=== PATIENT | female | born 1975 | race Caucasian/White ===

== ENCOUNTER 2017-06-14 05:12 | Day surgery (SDC) | payer BC ==
[~2017-06-14] VITALS: Ht 170.2 cm; Wt 76.4 kg
--- NOTE | ~2017-06-14 | O ---
[address] [address] OPERATIVE REPORT Name: AYO CHAO Room #: DEP [facility].#: [id number] Admission: 06/14/17 Attend Phys: Kris Dent MD Discharge: 06/14/17 Date of : 77 Report #: [id number] THIS REPORT FOR: //name// CC: Kim Dent DATE OF SERVICE: 06/14/2017 SERVICE: Orthopedics. FACILITY: [facility] SURGEON: Kris Dent MD HUMIDIFIER ATTENDANT SURGEON: None. PREOPERATIVE DIAGNOSES: 1. Right hip intra-articular impingement. 2. Right hip extra-articular impingement. 3. Right hip labral tear. 4. Right hip pain. POSTOPERATIVE DIAGNOSES: 1. Right hip intra-articular impingement. 2. Right hip extra-articular impingement. 3. Right hip labral tear. 4. Right hip pain. PROCEDURES: 1. Right hip arthroscopic Cam osteoplasty. 2. Right hip arthroscopic labral repair. 3. Right hip arthroscopic subspine acetabuloplasty for extra-articular impingement. ANESTHESIA TYPE: General with regional. COMPLICATIONS: None. DRAINS: None. SPECIMENS: None. FINDINGS: 1. Combined type impingement with extraarticular component treated with resection as well as intra-articular component on the femoral side treated with resection under fluoroscopic and arthroscopic visualization. [address] [address] OPERATIVE REPORT Name: AYO CHAO Room #: DEP [facility]#: [id number] Admission: 06/14/17 Attend Phys: Kris Dent MD Discharge: 06/14/17 Date of : 77 Report #: [id number] 2. Labral repair performed with Ewing suture anchor times 4. 3. Capsular repair performed with #2 Vicryl times 3. HISTORY AND INDICATIONS: The patient is a 41-year-old female who has been having progressive persistent right hip pain for several years now. She has tried extensive amount of nonoperative measures including rest, activity modification, physical therapy, exercise routine alterations, work modifications, oral medicines and injections. Despite all of these, she continued to have pain. She had imaging that was consistent with femoroacetabular impingement with an alpha angle of approximately 65 degrees as well as a large labral tear on the MRI. The x-rays also demonstrated a crossover sign with a prominent anterior inferior iliac spine consistent with extra-articular subspine impingement. Risks, benefits, alternatives and indications for surgery were discussed with her in detail. The risks include, but not limited to pain, bleeding, infection, injury to nerves or blood vessels, persistent pain despite surgical intervention, failure of any repairs, reconstruction, progression of any preexisting chondral injury, stiffness, need for further surgery as well as complications related to anesthesia such as stroke, heart attack, pulmonary complications, thromboembolic disease, and . She had no evidence of any arthritis, so her Tonnis grade was 0, therefore plans were made for right hip arthroscopic management of her femoroacetabular impingement and labral pathology. PROCEDURE IN DETAIL: After right lower extremity was correctly identified in the preoperative holding area as the operative extremity, the patient was taken to the operating room and placed supine on operating table after a single shot regional nerve block had been performed by anesthesia. She was padded appropriately after general endotracheal was induced without complication. Prophylactic antibiotics of 2 grams Ancef were administered at appropriate time. The right hip femoral head and neck junction was mapped up under fluoroscopy to assess the extent of the Cam lesion and then the right lower extremity was prepped and draped in standard sterile fashion. Time-out procedure was performed. Standard anterolateral portal followed by mid anterior working portal were established in the standard fashion using arthroscopic and fluoroscopic visualization and transverse capsulotomy was performed. There was a large detached anterior superior labral tear with some fraying at the chondral labral junction and limited grade 3 chondromalacia that was not full thickness. This extended for an area of approximately 2 cm in length, but only about 4-5 mm in depth. The capsule was reflected off the dorsal side of the labrum to allow access to the subspine pincer extra-articular impingement lesion and then the bur was used to resect this using fluoroscopic assistance and then attention was turned towards the labral repair. [address] [address] OPERATIVE REPORT Name: AYO CHAO Room #: DE[place] [facility]#: [id number] Admission: 06/14/17 Attend Phys: Kris Dent MD Discharge: 06/14/17 Date of : 77 Report #: [id number] The bur was used to freshen the edge of the acetabular rim. No rim resection was performed because this was not an over coverage issue at the acetabular articular margin and was rather an extraarticular subspine impingement issue on the acetabular side. The labral repair was then performed with 2 [employer] suture anchors using a mattress suture technique. There was still some increased mobility to the labrum after these two anchors and so at this point, I switched to a knotless suture anchor device in order to provide a more secure reduction as the labral base refixation had already been completed and the goal is to preserve the labrum as long as possible. Two additional anchors using a luggage tag suture technique with labral tape were then added and the labrum at this point was quite stable. The shaver was used to complete a chondroplasty at the chondral labral junction and then the traction was let down. The total traction time was approximately 58 minutes. The hip was then flexed up to assess the Cam lesion and there was chondromalacia of the femoral head and neck junction from the impingement and then using the bur, the Cam osteoplasty was performed in a standard fashion. Instruments were removed from the hip. The femoral head and neck junction was evaluated and was found to be adequately resected on the x-ray in multiple planes and then the scope was placed back into the hip. A dynamic impingement exam was performed again confirming adequate resection and then the debris was lavaged out of the hip and the capsule was closed with a #2 Vicryl times 3. Arthroscopic effusion was drained, the instruments were removed from the hip and the portal sites were closed with a deep followed by superficial 3-0 Monocryl suture followed by sterile dressing. The patient was awaken from anesthesia and taken to recovery room in stable condition. There were no complications and all counts were recorded as correct. <ELECTRONICALLY SIGNED> By: Kris Dent MD 06/15/17 0712 [id number] Kris Dent MD /nt
[~2017-06-14 05:12] MED LIST: FLONASE 0.05%50 MCG NASAL; NORTRIPTYLINE H10 M2 PO; PANTOPRAZOLE SO40 M1 PO; PROTONIX 20 MG20 M1 PO; VENTOLIN HFA 1818 GM INH; VERAPAMIL HCL120 M4 PO; VITAMIN D1000 UNI1 PO; VITAMIN D35000 UNIT PO
[2017-06-14 07:34] VITALS: BP 115/71
[2017-06-14 11:11] VITALS: BP 115/71
== END 2017-06-14 13:30 | disposition home or self-care (01) ==
LOC: OR 05:12 → TBA 05:14 → OR 05:31
DX: S73.101A Unspecified sprain of right hip, initial encounter (principal); M25.851 Other specified joint disorders, right hip; X58.XXXA Exposure to other specified factors, initial encounter; Y93.9 Activity, unspecified; Y92.89 Other specified places as the place of occurrence of the external cause; Y99.9 Unspecified external cause status; M94.251 Chondromalacia, right hip; I10 Essential (primary) hypertension; G43.909 Migraine, unspecified, not intractable, without status migrainosus; K21.9 Gastro-esophageal reflux disease without esophagitis; Z98.890 Other specified postprocedural states
CPT/HCPCS: 50010; 50101; 50386; 51538; 52298; 52304; 55430; 56524; 56527; 57092; 62110; 62900; 70005

== ENCOUNTER 2018-01-23 05:32 | Day surgery (SDC) | payer BC ==
[~2018-01-23] VITALS: Ht 170.2 cm; Wt 73.5 kg
--- NOTE | ~2018-01-23 | O ---
[address] [address] OPERATIVE REPORT Name: AYO CHAO Room #: DEP [facility].#: [id number] Admission: 01/23/18 Attend Phys: Kris Dent MD Discharge: 01/23/18 Date of : 77 Report #: [id number] THIS REPORT FOR: //name// CC: SHARI Dent Physician staff DATE OF SERVICE: 01/23/2018 SERVICE: Orthopedics. FACILITY: [facility]. SURGEON: Kris Dent MD SUPPORT SPECIALIST: None. PREOPERATIVE DIAGNOSES: 1. Left hip pain. 2. Left hip combined type femoroacetabular impingement. 3. Left hip labral tear. 4. Left hip mild chondromalacia. POSTOPERATIVE DIAGNOSES: 1. Left hip pain. 2. Left hip combined type femoroacetabular impingement. 3. Left hip labral tear. 4. Left hip mild chondromalacia. PROCEDURE: 1. Left hip arthroscopic labral repair. 2. Left hip arthroscopic Cam osteochondroplasty. 3. Left hip arthroscopic extraarticular subspine acetabuloplasty with limited chondroplasty. COMPLICATIONS: None. DRAINS: None. SPECIMENS: None. ANESTHESIA: General with regional. FINDINGS: 1. Intrasubstance labral tear with acetabular rim detachment repaired with Clotilde CinchLock suture anchor x 3. [address] [address] OPERATIVE REPORT Name: AYO CHAO Room #: DEP [facility]#: [id number] Admission: 01/23/18 Attend Phys: Kris Dent MD Discharge: 01/23/18 Date of : 77 Report #: [id number] 2. Limited acetabular rim chondromalacia at the chondral labral junction, partial thickness. 3. Intact tissues otherwise. 4. Intense synovitis throughout the hip. HISTORY AND INDICATIONS: The patient is a 42-year-old female with a history of bilateral hip pain and impingement syndrome with associated labral tears who had been treated conservatively for several years and had failed these measures. She had preoperative imaging, which was consistent with these findings with an alpha angle of 58 degrees, labral tear on MRI, a crossover sign on her x-rays and then a Tonnis grade of 0. She had surgery on the right hip as well and this did well with treatment of her GUSTABO and labral tear, and she elected to have a similar procedure on the right. Risks, benefits, alternatives and indications for surgery were again reviewed with her. Risks include but not limited to pain, bleeding, infection, injuring nerves or blood vessels, persistent pain despite surgical intervention, failure of any repairs or reconstruction, progression of any preexisting chondral injury, stiffness, need for further surgery as well as complications related to anesthesia such as stroke, heart attack, pulmonary complications, thromboembolic disease and . Despite these risks, she wished to proceed. PROCEDURE IN DETAIL: After the left lower extremity was correctly identified as the operative extremity, the patient underwent placement of a single shot regional nerve block. She was then taken to the operating room and placed supine on operating table. General endotracheal anesthesia was induced without complication. She was padded appropriately. Prophylactic antibiotics were administered at appropriate time. Left lower extremity was then prepped and draped in standard sterile fashion after the left hip was evaluated on fluoroscopy to assess the extent of the Cam deformity, which was located at approximately the 20-degree position with the max alpha angle of about 60 degrees. Time-out procedure was performed after prepping and draping and traction was applied to left leg. Total traction time was 57 minutes. A standard anterolateral viewing portal was established followed by mid anterior working portal and then a transverse capsulotomy was performed. Upon placing the scope into the hip, there was noted to be a significant amount of intense synovitis along the capsule as well as deep within the pulvinar and on the dorsal side of the labrum. There was evidence of a labral detachment, which was clear after the capsule was reflected off the dorsal side of the labrum. The articular cartilage was normal other than some grade 2 chondromalacia at the chondrolabral junction and slight chondral wave sign adjacent to the labral tear. After the capsule was reflected off the labrum and this exposed the subspine region, which was responsible for the crossover sign on her x-ray, the bur was used to perform a subspine recession. This extended proximally a reasonable amount and so a window was made on the dorsal side of the capsule obtaining access to the anterior column bone and then the bur was used to [address] [address] OPERATIVE REPORT Name: JEREMIEAYO M Room #: DEP [facility] Dwaine#: [id number] Admission: 01/23/18 Attend Phys: Kris Dent MD Discharge: 01/23/18 Date of : 77 Report #: [id number] complete the subspine recession along the anterior column and then the acetabular rim was abraded with the bur to generate a bleeding surface for labral repair and then the [place] CinchLock suture anchor was placed in its typical fashion utilizing 3 suture anchors with cerclage type stitches, which provided good labral reattachment and secure fixation. At this point, the labrum was probed and found to be stable and then the frayed labral tissue as well as the chondromalacia at the chondrolabral junction was debrided with the shaver and then traction was let down. With traction released the hip was then flexed and then the transverse capsulotomy was extended distally slightly to create a T-shaped capsulotomy allowing visualization of the Cam deformity where there was some abraded cartilage consistent with Cam impingement and then the bur was used to perform a Cam osteochondroplasty in a typical fashion. Instruments were removed from the hip. X-rays were taken to confirm that complete resection had been performed. Then, the instruments were placed back into the hip. The bony debris was lavaged out of the hip and then the T-shaped capsulotomy was closed with a total of five #2 Vicryl sutures in [id number] fashion. Instruments were then removed. The portal sites were closed with a deep followed by superficial 3-0 Monocryl stitch. Sterile dressing was applied. The patient was awakened from anesthesia and taken to recovery room in stable condition. There were no complications and all counts were recorded as correct. <ELECTRONICALLY SIGNED> By: Kris Dent MD 01/24/18 [id number] Kris Dent MD /nt
[2018-01-23 08:00] VITALS: BP 126/67
[2018-01-23 11:39] VITALS: BP 126/67
== END 2018-01-23 13:00 | disposition home or self-care (01) ==
LOC: OR 05:32 → TBA 05:33 → OR 06:50
DX: S73.102A Unspecified sprain of left hip, initial encounter (principal); M25.852 Other specified joint disorders, left hip; M94.252 Chondromalacia, left hip; J45.909 Unspecified asthma, uncomplicated; G43.909 Migraine, unspecified, not intractable, without status migrainosus; K21.9 Gastro-esophageal reflux disease without esophagitis; Z98.890 Other specified postprocedural states; Z79.899 Other long term (current) drug therapy; Z88.2 Allergy status to sulfonamides; Z88.8 Allergy status to other drugs, medicaments and biological substances; X58.XXXA Exposure to other specified factors, initial encounter; Y93.89 Activity, other specified; Y92.89 Other specified places as the place of occurrence of the external cause; Y99.8 Other external cause status
CPT/HCPCS: 50010; 50101; 50386; 51538; 52298; 55430; 56524; 56527; 57092; 62110; 62900; 70005